=== PATIENT | female | born 1995 | race Caucasian/White ===

== ENCOUNTER 2022-05-13 18:15 | Emergency (ER) | payer OTHER, SELFPAY ==
[2022-05-13 18:42] VITALS: BP 123/72; PULSE 119; RESP 16; TEMP 37.1; O2SAT 99
--- NOTE | 2022-05-13 18:50 | ED.GENADULT ---
HPI - General Adult General Chief complaint: Extremity Injury, Lower Stated complaint: right thigh pain Time Seen by Provider: 05/13/22 18:50 Source: patient Mode of arrival: ambulatory Limitations: no limitations History of Present Illness HPI narrative: 26-year-old female presented for complaint of abscess to the right upper inner thigh worsening over the past 3 days. She states yesterday and this morning the site drained purulent discharge. Endorses significant pain and warmth to the site. Denies any other locations of abscesses. She has been using Prid, Neosporin, using warm compresses and soaks. Related Data Allergies Allergy/AdvReac Type Severity Reaction Status Date / Time No Known Allergies Allergy Verified 05/13/22 18:51 Review of Systems Review of Systems: CONSTITUTIONAL: Denies body aches, fever, chills, or sweats. CARDIOVASCULAR: Denies chest pain, palpitations, or edema. RESPIRATORY: Denies cough or dyspnea. GASTROINTESTINAL: Denies abdominal pain, nausea, vomiting, or diarrhea. SKIN: reports abscess right leg MUSCULOSKELETAL: Denies back pain, joint pain, or myalgia. NEUROLOGIC: Denies headache, numbness, tingling, or weakness. PMFSH Comments At time of signature, I have reviewed and agree with nursing past medical, surgical, social and family history unless otherwise noted. Please see nursing chart for further information. There is no relevant family history pertinent to the presenting complaint Exam Narrative: GENERAL: Well-appearing, appears in pain EYES: conjunctivae clear, and EOMI. ENT: Mucous membranes moist. CHEST: Clear to auscultation. No respiratory distress. HEART: Regular rate and rhythm. SKIN: Warm, dry. Right inner upper thigh abscess, open center is approx 3mm diameter with surrounding induration of approx 5cm and surrounding erythema 10cm diameter. No active drainage; warm and tender to touch. NEURO: Alert and oriented x3. PSYCH: Normal mood and affect Course Course Emergency Course: Patient is aware of diagnosis, understands and agrees to treatment plan. Anticipatory guidance given. Patient agrees to follow-up as directed and is aware of reasons to seek care at the emergency department. Portions of this record may have been created with voice recognition software Level of Care: Express Care Visit Vital Signs Vital signs: Vital Signs Temperature 98.7 F 05/13/22 18:42 Pulse Rate 119 H 05/13/22 18:42 Respiratory Rate 16 05/13/22 18:42 Blood Pressure 123/72 05/13/22 18:42 Pulse Oximetry 99 05/13/22 18:42 Oxygen Delivery Room Air 05/13/22 18:42 Temperature 98.7 F 05/13/22 18:42 Pulse Rate 119 H 05/13/22 18:42 Respiratory Rate 16 05/13/22 18:42 Blood Pressure 123/72 05/13/22 18:42 Pulse Oximetry 99 05/13/22 18:42 Oxygen Delivery Room Air 05/13/22 18:42 Reviewed Procedures Abscess I/D lower extremity: Date of Incision: 05/13/22 Side (if applicable): right Local Anesthetic: lidocaine 1% Amount of anesthesia used (mL): 6 Technique: incised with #11 blade and probed loculations Irrigation: Yes Packing used?: [email or web address] I&D Results: Pus and Blood Medical Decision Making MDM Narrative Medical decision making narrative: LET gel and warm compresses applied prior to I&D. Differential Diagnosis Differential Diagnosis: abscess, cellulitis Vital Signs Vital Signs: Vital Signs Temperature 98.7 F 05/13/22 18:42 Pulse Rate 119 H 05/13/22 18:42 Respiratory Rate 16 05/13/22 18:42 Blood Pressure 123/72 05/13/22 18:42 Pulse Oximetry 99 05/13/22 18:42 Oxygen Delivery Room Air 05/13/22 18:42 Temperature 98.7 F 05/13/22 18:42 Pulse Rate 119 H 05/13/22 18:42 Respiratory Rate 16 05/13/22 18:42 Blood Pressure 123/72 05/13/22 18:42 Pulse Oximetry 99 05/13/22 18:42 Oxygen Delivery Room Air 05/13/22 18:42 Discharge Plan Discharge Clinical
[2022-05-13] MEDS: ACETAMINOPHEN 500 MG TABLET 1000 MG PO (19:21)
[2022-05-13] MEDS: LIDOCAINE, EPINEPHRINE, TETRACAINE VISCOUS SOLN 3 ML TOPICAL (19:23)
== END 2022-05-13 20:19 | disposition home or self-care (01) ==
PROVIDERS: Emergency Provider Nurse Practitioner Family
DX: L02.415 Cutaneous abscess of right lower limb (principal)
CPT/HCPCS: 10061; 87070; 87075; 87147; 87181; 87186; 87205; 99213; A9270; G0463